=== PATIENT | male | born 1955 | race Asian ===

== ENCOUNTER 2016-11-27 05:34 | Day surgery (SDC) | payer OTHER ==
[~2016-11-27] VITALS: Ht 167.6 cm; Wt 74.5 kg
[~2016-11-27 05:34] MED LIST: ALLO100T PO; ASPI81 PO; GEMF600T3 PO; HYDR25TA PO; LORA10TA7 PO; LOSA50TA37 PO; NIFE60TA71 PO; OMEP20 PO; SIMV-260 PO
[2016-11-27] MEDS ORDERED: SODIUM CHLORIDE 0.9% 1,000 ML IV ONE ×2 (05:45→06:00)
[2016-11-27] MEDS ORDERED: RINGERS SOLUTION,LACTATED 1,000 ML IV ONE (06:00)
[2016-11-27] MEDS ORDERED: FentaNYL CITRATE-PF 100 MCG/2 ML VIAL ONE (07:07)
[2016-11-27] MEDS ORDERED: MIDAZOLAM HCL 5 MG/ML VIAL ONE (07:08)
[2016-11-27] MEDS ORDERED: FentaNYL CITRATE-PF 100 MCG/2 ML VIAL IVP ONE (12:00)
== END 2016-11-27 08:45 | disposition home or self-care (01) ==
LOC: SURGERY 05:34
PROVIDERS: ATTEND Specialist
DX: Z12.11 Encounter for screening for malignant neoplasm of colon (principal); K64.1 Second degree hemorrhoids; K57.90 Diverticulosis of intestine, part unspecified, without perforation or abscess without bleeding; I10 Essential (primary) hypertension; E78.5 Hyperlipidemia, unspecified; M10.9 Gout, unspecified; Z72.89 Other problems related to lifestyle
CPT/HCPCS: 45378; J7030; J2250; J3010

== ENCOUNTER → 2018-08-20 | Outpatient (CLI) | payer OTHER ==
[~2018-08-20] MED LIST changes: -GEMF600T3 PO; +GEMF600T5 PO; +LOSA50TA25 PO; -LOSA50TA37 PO
== END | disposition home or self-care (01) ==
LOC: RADPV 13:56
PROVIDERS: ATTEND Family Medicine
DX: R05 Cough (principal)

== ENCOUNTER → 2023-09-25 | Outpatient (CLI) | payer MEDICARE ==
[~2023-09-25] MED LIST changes: +ALLO-97 PO; -ALLO100T PO; +ASPI-1450 PO; -ASPI81 PO; +GEMF-77 PO; -GEMF600T5 PO; -HYDR25TA PO; +HYDR25TA2 PO; +LOSA-382 PO; -LOSA50TA25 PO; +NIFE-129 PO; -NIFE60TA71 PO
== END | disposition home or self-care (01) ==
LOC: RADMN 11:41
PROVIDERS: ATTEND Family Medicine
DX: M25.512 Pain in left shoulder (principal)
CPT/HCPCS: 73030-TC